=== PATIENT | male | born 1965 | race Caucasian/White ===

== ENCOUNTER 2019-06-28 16:56 | Emergency (ER) | payer MEDICAID, MEDICARE ==
[~2019-06-28] VITALS: Ht 195.6 cm; Wt 59.0 kg
[2019-06-28 17:04] VITALS: BP 139/91
[2019-06-28] MEDS ORDERED: ondansetron 4mg rapidly disintigrating tab PO ONE (17:45)
[2019-06-28] MEDS ORDERED: HYDROcodone/acetaminophen 5mg/325mg tablet PO ONE (17:45)
[2019-06-28] MEDS ORDERED: LIDOcaine 1% W/epiNEPHrine 1:200,000 10ml vial IJ ONE (17:55)
[2019-06-28] MEDS ORDERED: CLIN300C70 PO (18:37)
== END 2019-06-28 19:02 | disposition home or self-care (01) ==
LOC: ER 16:57
DX: K04.7 Periapical abscess without sinus (principal)
CPT/HCPCS: 10060; 41800; 99283

== ENCOUNTER 2019-08-29 13:24 | Emergency (ER) | payer MEDICAID, MEDICARE ==
[~2019-08-29] VITALS: Ht 170.2 cm; Wt 54.0 kg
[2019-08-29 14:07] VITALS: BP 109/62
[2019-08-29] MEDS ORDERED: BUPIVAcaine 0.5% W/EPI /PF 30ml vial SQ ONE (14:50)
--- NOTE | 2019-08-29 15:11 | NUR ---
supplies at bedside for I&D
[2019-08-29] MEDS ORDERED: AMOX-580 PO (15:34)
== END 2019-08-29 16:09 | disposition home or self-care (01) ==
LOC: ER 13:25
DX: K04.7 Periapical abscess without sinus (principal); Z79.2 Long term (current) use of antibiotics
CPT/HCPCS: 96372; 99283